=== PATIENT | male | born 1975 | race Caucasian/White ===

== ENCOUNTER 2025-01-14 09:19 | Emergency (ER) | payer OTHER, SELFPAY ==
[2025-01-14] VITALS (10 sets, daily range): BP systolic 99–130; BP diastolic 61–77; PULSE 61–68; BMI 26.3
--- NOTE | 2025-01-14 10:01 | ED.GENMED ---
History of Present Illness
General
Chief Complaint: Dizziness
Source: patient and spouse
Time Seen by Provider: 01/14/25 09:53
History of Present Illness
History of Present Illness:
The patient is a 49-year-old male who presented to the emergency department with a chief complaint of dizziness characterized by a spinning sensation that began this morning. The patient reports that the dizziness started after taking a shower and
then looking up the possible effects of a bee sting. The patient expressed concern about the possibility of a yellow jacket stinger remaining in his arm and was worried about potential anaphylaxis. However, he has not experienced any immediate
allergic reactions, such as those associated with anaphylaxis, since the incident. He does have nausea and feels tingling all over.
Past History
Past History
ED Past Medical History: None
ED Past Surgical History: None
Social History
Tobacco: Non-smoker
Alcohol: None
Personal:
Living: with family
Employment: Employed
Family History
Family History: Other (Uncle with [place] in his 50s, grandmother with [place] and 70s, mother's side hypertension)
Phy Exam
Physical Exam
Physical Exam:
General: Awake, Alert, Oriented X3. Appears anxious, uncomfortable from nausea
Vitals: unremarkable
Head: Atraumatic
Eyes: Pupils equal, EOMI
Throat: Airway intact, no exudates
Neck: Trachea midline
Lungs: Clear and equal b/l
Heart: Regular rate, no murmurs
Abd: Soft, Nontender, No pulsatile mass
Neuro: Cranial nerves intact, muscle strength equal bilaterally, cerebellar exam normal
Skin: Warm, dry, no rash
Extremities: pulses equal b/l, no edema
Course
Orders/Labs/Results
Orders:
Orders
01/14/25 09:25
EKG [Electrocardiogram (*1)] Urgent
Reason for Study: Tachycardia
EKG- Treatment ONCE
01/14/25 10:00
0.9% Sodium Chloride 500 ml [Nss] 500 ml IV BOLUS
Ondansetron Injectable [Zofran] 4 mg IV NOW STA
diazePAM [Valium Injection] 5 mg IV NOW STA
01/14/25 10:10
Basic Metabolic Panel Urgent
Complete Blood Count/With Diff Urgent
01/14/25 10:18
CT Head W/o Iv Contrast Urgent
Comment:
Reason For Exam: dizziness
Abnormal Lab Results
01/14/25
10:10
RBC 4.41 L 10^6/uL
(4.70-6.10)
Monocytes % 9.7 H %
(1.7-9.3)
Glucose 142 H mg/dl
(70-99)
01/14/25 10:10
01/14/25 10:10
Vital Signs
Initial and Last Documented VS:
Initial Vital Signs
Temp Pulse Resp BP Pulse Ox
97.6 F 67 18 130/67 99
01/14/25 09:21 01/14/25 09:21 01/14/25 09:21 01/14/25 09:21 01/14/25 09:21
Last Documented Vital Signs
Temp Pulse Resp BP Pulse Ox
98.1 F 64 0 100/74 100
01/14/25 09:57 01/14/25 12:24 01/14/25 10:18 01/14/25 12:27 01/14/25 12:24
MDM/Problems Addressed
Differential Diagnosis Includes:
BPPV, anxiety, hyperventilation
MDM/Problems Addressed:
Patient presents with dizziness, lightheadedness. Feeling quite poorly on arrival. Had significant proved with IV fluid, IV Valium and Zofran. Symptoms ultimately resolved. Suspect the patient became somewhat anxious about his recent hymenoptera
sting after reading the potential complications. This likely generated hyperventilation causing the cascade of symptoms. Patient currently feeling much better. Stable for discharge home and follow with his primary care provider.
*Radiology
Radiology exam reviewed: radiology read reviewed
*Pulse Oximetry
SaO2: 100
Oxygen Mode of Delivery: Room air
Patient hypoxic: no
*Critical Care Note
Total Time (30-74mins, 75-104mins- exclusive of procedures): Not Applicable
ED Attending Note
-
Portions of this chart may have been created with voice recognition software.� Occasional wrong word or��sound alike� substitutions may have occurred due to the inherent limitations of voice recognition software.
Discharge Plan
Departure
Patient Disposition: Home (Routine Discharge)
Date of Disposition: 01/14/25
Time of Disposition: 12:54
Patient with high blood pressure during this ER visit?: No
Condition: Good
Discharge Problem:
Dizziness, Acute hyperventilation syndrome
Instructions: Vertigo (a Type of Dizziness) (DC)
Prescriptions:
No Action
No Current Medications
0
Referrals:
Yuly Gusman PA-C [Family Provider, Internal Medicine]
Interventions
Interventions:
*Risk Screen - Suicide Last Done: 01/14/25 09:21
*General Assessment Last Done: 01/14/25 09:21
*Neglect/Abuse Screening Last Done: 01/14/25 09:57
*ED- Fall Risk Assessment Last Done: 01/14/25 09:21
*ED COVID-19 Vaccine History Last Done: 01/14/25 09:21
*Nursing Disposition Last Done: 01/14/25 13:03
ED- Neurological Assessment Last Done: 01/14/25 09:57
ED- Cardiac Assessment Last Done: 01/14/25 09:57
ED Swallowing Screen Last Done: 01/14/25 09:57
Discharge Date and Time
Discharge Date/Time: 01/14/25 13:09
Print Language: UKRAINIAN
[2025-01-14] MEDS: VALIUM INJECTION 5 MG IV (10:06)
[2025-01-14] MEDS: ZOFRAN 4 MG IV (10:06)
[2025-01-14] MEDS: NSS 500 IV (10:07)
[2025-01-14 10:17] LABS: Hematocrit 39.4 % (39.0-52.0); Hemoglobin 13.5 g/dL (13.0-18.0); Mean Corp Hgb Conc. 34.3 g/dL (33.0-37.0); Mean Corpuscular Volume 89.3 fL (80.0-94.0); Nucleated Red Blood Cells % 0 % (-); Platelet Count 229 10^3/uL (130-400); Red Cell Dist. Width 11.8 % (11.5-14.5)
--- NOTE | 2025-01-14 10:24 | EDRN ---
his RN noticed that the pts Sp02 dipped to 55% on RA, this RN woke the pt up and asked him to take deep breaths and the pts Sp02 came up to 77%, this RN notified Dr. Santos and this RN placed the pt on 6L NC, the pts Sp02 came up to 99%, no s/s of
distress, will take the pt to CT per Dr. Velasquez orders
[2025-01-14 10:29] LABS: Blood Urea Nitrogen 18 mg/dl (9-20); Calcium 9.8 mg/dl (8.4-10.2); Carbon Dioxide 22 mmol/L (22-30); Chloride 101 mmol/L (98-107); Estimated Creatinine Clearance 101 ml/min; Glucose 142 mg/dl (70-99); Potassium 3.6 mmol/L (3.5-5.1); Sodium 135 mmol/L (135-145); eGFR > 60.00
== END 2025-01-14 13:09 | disposition home or self-care (01) ==
LOC: EMR 09:19
PROVIDERS: EMERGENCY PHYSICIAN Emergency Medicine; FAMILY PHYSICIAN Physician Assistant Medical
DX: T63.441A Toxic effect of venom of bees, accidental (unintentional), initial encounter (principal); R42 Dizziness and giddiness; F45.8 Other somatoform disorders; R11.0 Nausea; R20.2 Paresthesia of skin; W57.XXXA Bitten or stung by nonvenomous insect and other nonvenomous arthropods, initial encounter
CPT/HCPCS: 99285; 96374; 96375; 96361; 70450; 80048; 85025; 93005